=== PATIENT | female | born 1955 | race Caucasian/White ===

== ENCOUNTER → 2019-09-08 11:23 | Outpatient (CLI) | payer MEDICARE, SELFPAY ==
--- NOTE | ~2019-09-08 | XR_ITS ---
XR ankle RT min 3V 09/08/2019 11:41 Indication: Right fibular fracture Procedure: 2 views right ankle Comparison: No prior studies for comparison. Findings: Transverse nondisplaced distal fibular fracture, age indeterminate. Ankle mortise. Talar do me is normal. There are degenerative calcaneal enthesophytes. Mild lateral soft tissue swelling. Impression: 1: Age-indeterminate nondisplaced distal fibular fracture. Reviewed, dictated and finalized at location B. [employer] Impression: 1: Age-indeterminate nondisplaced distal fibular fracture.
== END ==
PROVIDERS: PCP Internal Medicine; Visit Provider Podiatrist Foot & Ankle Surgery
DX: S82.401A Unspecified fracture of shaft of right fibula, initial encounter for closed fracture (principal); X58.XXXA Exposure to other specified factors, initial encounter
CPT/HCPCS: 73610

== ENCOUNTER → 2019-10-01 12:34 | Outpatient (CLI) | payer MEDICARE, SELFPAY ==
--- NOTE | ~2019-10-01 | XR_ITS ---
EXAMINATION: XR ankle RT min 3V DATE: 10/01/2019 12:55 INDICATION: Lateral right ankle fracture TECHNIQUE: Anteroposterior, oblique, mortise, and lateral views of the right ankle were obtained. COMPARISON: 09/08/2019 FINDINGS: There is subtle increased sclerosis along the still nondisplaced transverse fracture line across the lateral malleolus which is located approximately 1 cm caudal to the level of the tibiotalar joint lisha e. Alignment remains normal. No other fractures identified. Joint space at the right ankle, mid and h indfoot are relatively preserved. Moderate-sized Achilles and plantar calcaneal spurs. Prominent soft tissue swelling about the lateral malleolus. Possible small right ankle joint effusion. IMPRESSION: 1. Healing nondisplaced transverse fracture of the distal tip of the lateral malleolus. Reviewed, dictated and finalized at location A. IMPRESSION: 1. Healing nondisplaced transverse fracture of the distal tip of the lateral ma lleolus.
== END ==
PROVIDERS: Visit Provider Podiatrist Foot & Ankle Surgery
DX: S82.61XD Displaced fracture of lateral malleolus of right fibula, subsequent encounter for closed fracture with routine healing (principal); X58.XXXD Exposure to other specified factors, subsequent encounter
CPT/HCPCS: 73610

== ENCOUNTER 2021-12-07 00:27 | Day surgery (SDC) | payer MEDICARE, MEDICAID, SELFPAY ==
[2021-12-04 08:18] VITALS: BMI 34.0
[2021-12-07 09:14] VITALS: BP 133/67; PULSE 80; RESP 19; TEMP 36.8; O2SAT 99
[2021-12-07] MEDS: LACTATED RINGERS 1,000 ML 150 ML IV CONT (09:24)
--- NOTE | 2021-12-07 09:26 | PM.HPGS ---
History of Present Illness History of Present Illness Consent: Risks, benefits, and alternatives have been discussed and questions answered. Patient agrees to proceed with procedure. Chief complaint: epigastric pain Narrative: Cristal Conway is a 66 year old female Who?has been suffering from abdominal pain.? It is present virtually every day.? The pattern is that usually she is feeling fairly good until she eats a meal.? Then she will get a pain in the epigastric area and after a short period of time it will begin to travel down towards the right lower quadrant into the groin.? She has had studies done to investigate this including an EGD about 2 or 3 years ago, colonoscopy a year prior to that as well as CT scans all of which were unremarkable.? ? 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 She thinks she may have lost about 6 lb total. Review of Systems Review of Systems: All systems reviewed & are unremarkable except as noted in HPI and below PMFSH Social History Social History Smoking status: Never smoker Living arrangements: with family Spiritual care concerns: No Meds Home Medications and Allergies Home Medications Medication Instructions Recorded Confirmed Type aspirin 81 mg tablet,delayed 81 mg PO DAILY 10/23/21 12/04/21 History release (Adult Aspirin Regimen) atorvastatin 40 mg tablet 40 mg PO DAILY 10/23/21 12/04/21 History carvedilol 3.125 mg tablet 3.125 mg PO BID 10/23/21 12/04/21 History clopidogrel 75 mg tablet 75 mg PO DAILY 10/23/21 12/04/21 History furosemide 20 mg tablet 20 mg PO DAILY 10/23/21 12/04/21 History lisinopril 40 mg tablet 40 mg PO DAILY 10/23/21 12/04/21 History polyethylene glycol 3350 17 17 g PO .prn PRN Constipation 10/23/21 12/04/21 History gram/dose oral powder (Miralax) spironolactone 25 mg tablet 25 mg PO DAILY 10/23/21 12/04/21 History Allergies Allergy/AdvReac Type Severity Reaction Status Date / Time No Known Allergies Allergy Mild Verified 12/07/21 09:13 Vital Signs Vital Signs - 24 hr 12/07/21 09:14 Temperature 36.8 C Pulse Rate 80 Respiratory Rate 19 Blood Pressure 133/67 Pulse Oximetry 99 Oxygen Delivery Room Air Exam Const: General: alert Orientation/consciousness: patient oriented x3 Resp: Auscultation: clear to auscultation bilaterally Cardio: Rhythm: regular rhythm GI: GI Palp: Yes Soft to palpation and No Tenderness to palpation present (GI) Neuro: General: patient oriented x3 Assessment and Plan Assessment and plan (1) Epigastric pain: Code(s): R10.13 - Epigastric pain Status: Acute Assessment and Plan: EGD with possible biopsy or dilatation or cautery.
--- NOTE | 2021-12-07 10:01 | P.PNAN_ITS ---
Anes - Initial Pre Proc Eval Procedure: Operation Date: 12/07/21 10:30 Proposed Procedures p Esophagogastroduodenoscopy - Edmar Fuller MD Date/Time: 12/07/21 10:01 Surgeon: Edmar Fuller MD Pre Op Diagnosis: epigastric pain Patient Data Age: 66 Gender: F Height: 1.6 m Weight: 88.2 kg Last Vital Signs Temp 98.2 F 12/07/21 09:14 Pulse 80 12/07/21 09:14 Resp 19 12/07/21 09:14 BP 133/67 12/07/21 09:14 Pulse Ox 99 12/07/21 09:14 O2 Del Method Room Air 12/07/21 09:14 Allergies Allergy/AdvReac Type Severity Reaction Status Date / Time No Known Allergies Allergy Mild Verified 12/07/21 09:13 Home Medications Medication Instructions Recorded Confirmed Type aspirin 81 mg tablet,delayed 81 mg PO DAILY 10/23/21 12/04/21 History release (Adult Aspirin Regimen) atorvastatin 40 mg tablet 40 mg PO DAILY 10/23/21 12/04/21 History carvedilol 3.125 mg tablet 3.125 mg PO BID 10/23/21 12/04/21 History clopidogrel 75 mg tablet 75 mg PO DAILY 10/23/21 12/04/21 History furosemide 20 mg tablet 20 mg PO DAILY 10/23/21 12/04/21 History lisinopril 40 mg tablet 40 mg PO DAILY 10/23/21 12/04/21 History polyethylene glycol 3350 17 17 g PO .prn PRN Constipation 10/23/21 12/04/21 His tory gram/dose oral powder (Miralax) spironolactone 25 mg tablet 25 mg PO DAILY 10/23/21 12/04/21 History Patient hx anesthesia problems: none Family hx anesthesia problems: none Results Review: All pre-operative results and documents have been reviewed as part of the pre- operative evaluation. [facility] Social History Social History Smoking status: Never smoker Living arrangements: with family Spiritual care concerns: No Anes - Eval Final PreProcedure Day of Procedure 12/07/21 10:01 Patient weight: obese Heart: regular rate and rhythm Lungs: clear to auscultation Airway: Mallampati scale class II Neurological: alert and oriented Last oral intake: >/= 8 hours ASA classification: III Emergent: no Anesthetic plan: proceed Anesthesia type and monitoring: general GIVS and standard monitoring Results Review: All pre-operative results and documents have been reviewed as part of the pre-o perative evaluation. Informed Consent: The patient's anesthetic plan and its attendant risks and benefits were discussed with the patient/family/POA. Questions were solicited and answers provided to the satisfaction of the patient/family/POA.
[2021-12-07 10:23] VITALS: BP 106/58; PULSE 67; RESP 14; O2SAT 93
[2021-12-07 10:33] VITALS: BP 126/68; PULSE 66; RESP 17; O2SAT 97
[2021-12-07 10:43] VITALS: BP 131/68; PULSE 65; RESP 16; O2SAT 100
== END 2021-12-07 10:53 | disposition home or self-care (01) ==
PROVIDERS: PCP Internal Medicine; Visit Provider Internal Medicine Gastroenterology
PROC: 0DJ08ZZ Inspection of Upper Intestinal Tract, Via Natural or Artificial Opening Endoscopic (ICD-10-PCS; CPT 43235; principal; 2021-12-07 10:30)
DX: R10.13 Epigastric pain (principal); K29.70 Gastritis, unspecified, without bleeding; K21.9 Gastro-esophageal reflux disease without esophagitis; Z79.82 Long term (current) use of aspirin; E66.9 Obesity, unspecified; Z68.34 Body mass index [BMI] 34.0-34.9, adult
CPT/HCPCS: 43239; 87081; 88305; J2704; J7120

== ENCOUNTER 2022-07-30 10:56 | Emergency (ER) | payer MEDICARE, MEDICAID, SELFPAY ==
[2022-07-30 10:59] VITALS: BP 124/63; PULSE 76; RESP 16; TEMP 36.7; O2SAT 99
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
[2022-07-30] MEDS: DEXAMETHASONE 2 MG TABLET 6 MG PO (13:20)
[2022-07-30] MEDS: CYCLOBENZAPRINE HCL 5 MG TABLET PO (13:20)
== END 2022-07-30 13:21 | disposition home or self-care (01) ==
PROVIDERS: Emergency Provider Emergency Medicine; PCP Internal Medicine
DX: S39.012A Strain of muscle, fascia and tendon of lower back, initial encounter (principal); V49.40XA Driver injured in collision with unspecified motor vehicles in traffic accident, initial encounter
CPT/HCPCS: 99283; A9270; J8540

== ENCOUNTER 2022-10-11 11:24 | Emergency (ER) | payer MEDICARE, MEDICAID, SELFPAY ==
--- NOTE | ~2022-10-11 | XR_ITS ---
EXAMINATION: XR finger 3rd LT min 2V INDICATION: Left third finger pain TECHNIQUE: Three views of the left third finger are obtained. COMPARISON: None available FINDINGS: There is soft tissue swelling of the third finger. Bone alignment is normal. There is no fr acture. There is mild osteoarthritis of the distal interphalangeal joint. IMPRESSION: 1. Soft tissue swelling of the third finger without acute osseous abnormality. Reviewed, dictated and finalized at location B.
[2022-10-11 11:32] VITALS: BP 122/60; PULSE 76; RESP 20; TEMP 36.2; O2SAT 100
[2022-10-11 13:25] VITALS: BP 119/75; PULSE 73; RESP 19; O2SAT 99
[2022-10-11] MEDS: ONDANSETRON HCL ODT 4 MG TABLET PO (13:52)
[2022-10-11] MEDS: TETANUS,DIPHTHERIA,AC PERTUSSIS ADULT (0.5 ML) BOOSTRIX IM (13:52)
[2022-10-11] MEDS: HYDROcodone/acetaminophen (*CRX) 5-325 MG TABLET 1 TAB PO (13:54)
[2022-10-11] MEDS: LIDOCAINE HCL 2% LOCAL INJ 20 ML VIAL INFILTRATE (13:55)
--- NOTE | 2022-10-11 13:59 | ED.GENADULT ---
HPI - General Adult General Chief complaint: Unspecified Stated complaint: left middle finger swelling, suspected bite Time Seen by Provider: 10/11/22 12:04 Source: patient, RN notes reviewed and old records reviewed Mode of arrival: ambulatory Limitations: no limitations History of Present Illness HPI narrative: This is a 67 year old right hand dominant female who presents for evaluation swollen left middle finger starting 2 days ago. She reports having pimple on her right finger next to nail. She ruptured the pimple and she developed redness and swelling to finger tip. She denies nausea, vomiting, fever, chills. She has pain with movement of the finger. She is unsure of her last tetanus. SHe denies history of MRSA. Related Data Home Medications Medication Instructions Recorded Confirmed aspirin 81 mg tablet,delayed 81 mg PO DAILY 10/23/21 12/04/21 release (Adult Aspirin Regimen) atorvastatin 40 mg tablet 40 mg PO DAILY 10/23/21 12/04/21 carvedilol 3.125 mg tablet 3.125 mg PO BID 10/23/21 12/04/21 clopidogrel 75 mg tablet 75 mg PO DAILY 10/23/21 12/04/21 furosemide 20 mg tablet 20 mg PO DAILY 10/23/21 12/04/21 lisinopril 40 mg tablet 40 mg PO DAILY 10/23/21 12/04/21 polyethylene glycol 3350 17 17 g PO .prn PRN Constipation 10/23/21 12/04/21 gram/dose oral powder (Miralax) spironolactone 25 tablet 07/30/22 mg-hydrochlorothiazide 25 mg tablet Allergies Allergy/AdvReac Type Severity Reaction Status Date / Time No Known Allergies Allergy Mild Verified 10/11/22 11:39 Review of Systems Constitutional: Constitutional: Denies weakness Cardiovascular: Cardiovascular: Denies syncope, Denies rapid heart rate, Denies irregular heart rhythm, Denies leg edema and Denies dyspnea Respiratory: Respiratory: Denies chest congestion, Denies hemoptysis, Denies excessive phlegm production and Denies dyspnea Gastrointestinal: Gastrointestinal: Denies abdominal pain, Denies hematochezia, Denies diarrhea and Denies vomiting Genitourinary: Genitourinary: Denies hematuria and Denies dysuria Musculoskeletal: Musculoskeletal: Denies joint swelling, Denies loss of height and Denies muscle weakness Neurologic: Denies syncope, Denies focal weakness and Denies weakness COUNT INCLUDES THE [facility] Past Medical History Medical History (Updated 10/11/22 @ 14:58 by Rachel See MD) Hypertension Surgical History Surgical History (Updated 10/11/22 @ 14:02 by Rachel See MD) H/O: hysterectomy Social History Social History Smoking status: Never smoker Living arrangements: with family Spiritual care concerns: No Exam Const: General: cooperative, no acute distress and alert Orientation/consciousness: patient oriented x3 HENMT: Head: normal to inspection Eyes: EOM: EOMs intact bilaterally Resp: Effort & Inspection: normal respiratory effort Cardio: Peripheral pulses: Peripheral pulses 2+ throughout Skin: Other: left 3rd finger with area of redness, fluctuance tenderness radial side nail Neuro: General: patient oriented x3 Extrem: General: full ROM and capillary refill normal Psych: Appearance: grossly normal Affect: normal affect Attitude: cooperative Thought process: Normal thought process present Course Reevaluation(s) Reevaluation #1: PAtient states she feels better after I and D of paronychia. She has some bleeding but controlled with bandage. I discussed bandage change and wound care with patient. She was started on antibiotics given signs of cellulitis. Date: 10/11/22 Time: 15:00 Vital Signs Vital signs: Vital Signs Temperature 97.2 F L 10/11/22 11:32 Pulse Rate 76 10/11/22 11:32 Respiratory Rate 20 10/11/22 11:32 Blood Pressure 122/60 10/11/22 11:32 Pulse Oximetry 100 10/11/22 11:32 Oxygen Delivery Room Air 10/11/22 11:32 Temperature 97.2 F L 10/11/22 11:32 Pulse Rate 78 10/11/22 15:09 Respiratory Rate 16 10/11
[2022-10-11 15:09] VITALS: BP 107/71; PULSE 78; RESP 16; O2SAT 99
== END 2022-10-11 15:10 | disposition home or self-care (01) ==
PROVIDERS: Emergency Provider General Practice; PCP Internal Medicine
DX: L03.012 Cellulitis of left finger (principal); Z23 Encounter for immunization; I10 Essential (primary) hypertension; Z79.82 Long term (current) use of aspirin; Z90.710 Acquired absence of both cervix and uterus
CPT/HCPCS: 10060; 26010; 73140; 90471; 90715; 99283; A9270

== ENCOUNTER 2023-04-27 10:01 | Emergency (ER) | payer MEDICARE, MEDICAID, SELFPAY ==
--- NOTE | ~2023-04-27 | XR_ITS ---
EXAMINATION: XR chest 1V portable 04/27/2023 10:20 INDICATION: Cough PROCEDURE: AP portable chest COMPARISON: No prior studies for comparison. FINDINGS: The lungs are clear. The cardiomediastinal silhouette is within normal limits. There are no pleural effusions. There is no pneumothorax suspected. IMPRESSION: 1: NO ACUTE CARDIOPULMONARY DISEASE. Reviewed, dictated and finalized at location A.
[2023-04-27 10:03] VITALS: BP 150/63; PULSE 58; RESP 16; TEMP 36.2; O2SAT 99
[2023-04-27 10:27] VITALS: O2SAT 97
[2023-04-27 10:31] VITALS: PULSE 54; RESP 16
[2023-04-27] MEDS: ALBUTEROL SULFATE NEB 2.5 MG/3 ML INH INHALATION (10:31)
[2023-04-27] MEDS: IPRATROPIUM BR 0.02% INH SOLN 0.5 MG/2.5 ML VIAL INHALATION (10:31)
--- NOTE | 2023-04-27 10:43 | ED.GENADULT ---
HPI - General Adult General Chief complaint: Upper Respiratory Infection Stated complaint: coughing Time Seen by Provider: 04/27/23 10:10 History of Present Illness HPI narrative: Patient is a 68-year-old female who presents ER with reports of cough. Ongoing for several weeks. Has been on antibiotics without improvement. No fevers or chills or sweats. It is nonproductive and feels deep in her chest. No exertional dyspnea. No history of bronchitis or COPD. She does not have an inhaler. Related Data Home Medications Medication Instructions Recorded Confirmed aspirin 81 mg tablet,delayed 81 mg PO DAILY 10/23/21 12/04/21 release (Adult Aspirin Regimen) atorvastatin 40 mg tablet 40 mg PO DAILY 10/23/21 12/04/21 carvedilol 3.125 mg tablet 3.125 mg PO BID 10/23/21 12/04/21 clopidogrel 75 mg tablet 75 mg PO DAILY 10/23/21 12/04/21 furosemide 20 mg tablet 20 mg PO DAILY 10/23/21 12/04/21 lisinopril 40 mg tablet 40 mg PO DAILY 10/23/21 12/04/21 polyethylene glycol 3350 17 17 g PO .prn PRN Constipation 10/23/21 12/04/21 gram/dose oral powder (Miralax) spironolactone 25 tablet 07/30/22 mg-hydrochlorothiazide 25 mg tablet Allergies Allergy/AdvReac Type Severity Reaction Status Date / Time No Known Allergies Allergy Mild Verified 04/27/23 10:05 Review of Systems Constitutional: Constitutional: Denies chills, Denies fatigue and Denies fever(s) ENT: Denies nasal congestion and Denies sore throat Cardiovascular: Cardiovascular: Denies chest pain, Denies rapid heart rate and Denies radiating jaw, neck or arm pain Respiratory: Respiratory: Reports cough, Denies dyspnea and Denies wheezing [facility] Past Medical History Medical History (Updated 04/27/23 @ 11:21 by David Koch MD) Hypertension Surgical History Surgical History (Updated 10/11/22 @ 14:02 by Rachel See MD) H/O: hysterectomy Social History Social History Smoking status: Never smoker Living arrangements: with family Spiritual care concerns: No Exam Narrative: GENERAL: Well-appearing, well-nourished, and in no acute distress. HEAD: Normocephalic, atraumatic. CHEST: Clear to auscultation. No respiratory distress. HEART: Regular rate and rhythm. Normal peripheral pulses. ABDOMEN: Soft, nontender, nondistended. SKIN: Warm, dry, no rash. NEURO: Alert and oriented x3. PSYCH: Normal mood and affect. Course Course Emergency Course: Coughing improved with nebulizer treatment. Discharge home with steroids and albuterol. Vital Signs Vital signs: Vital Signs Temperature 97.2 F L 04/27/23 10:03 Pulse Rate 58 L 04/27/23 10:03 Respiratory Rate 16 04/27/23 10:03 Blood Pressure 150/63 H 04/27/23 10:03 Pulse Oximetry 99 04/27/23 10:03 Temperature 97.2 F L 04/27/23 10:03 Pulse Rate 66 04/27/23 11:42 Respiratory Rate 18 04/27/23 11:42 Blood Pressure 130/72 04/27/23 11:42 Pulse Oximetry 100 04/27/23 11:42 Oxygen Delivery Room Air 04/27/23 10:27 Medical Decision Making Vital Signs Vital Signs: Vital Signs Temperature 97.2 F L 04/27/23 10:03 Pulse Rate 58 L 04/27/23 10:03 Respiratory Rate 16 04/27/23 10:03 Blood Pressure 150/63 H 04/27/23 10:03 Pulse Oximetry 99 04/27/23 10:03 Temperature 97.2 F L 04/27/23 10:03 Pulse Rate 66 04/27/23 11:42 Respiratory Rate 18 04/27/23 11:42 Blood Pressure 130/72 04/27/23 11:42 Pulse Oximetry 100 04/27/23 11:42 Oxygen Delivery Room Air 04/27/23 10:27 Discharge Plan Discharge Clinical Impression: Bronchitis Patient Disposition: Home, Self-Care Condition: Stable Instructions: Acute Bronchitis (ED) Additional Instructions: Return the ER if you have fever 100.4 ?F, you cannot keep down food or water, you lose consciousness, you have additional concerns. Prescriptions: New prednisone 50 mg tablet 50 mg PO DAILY Qty: 7 0RF
[2023-04-27 10:44] VITALS: PULSE 69; RESP 16
[2023-04-27 11:42] VITALS: BP 130/72; PULSE 66; RESP 18; O2SAT 100
== END 2023-04-27 11:43 | disposition home or self-care (01) ==
PROVIDERS: Emergency Provider Emergency Medicine; PCP Internal Medicine
DX: J40 Bronchitis, not specified as acute or chronic (principal); I10 Essential (primary) hypertension
CPT/HCPCS: 71045; 94640; 99283

== ENCOUNTER 2023-10-04 13:40 | Emergency (ER) | payer MEDICARE, MEDICAID, SELFPAY ==
--- NOTE | ~2023-10-04 | XR_ITS ---
EXAMINATION: XR shoulder LT min 2V DATE: 10/04/2023 14:19 INDICATION: Left shoulder pain. Fall. TECHNIQUE: 4 views of left shoulder were obtained. COMPARISON: None. FINDINGS: Bone alignment is normal. No fracture. There is mild osteoarthritis of glenohumeral joint a nd severe osteoarthritis of acromioclavicular joint. IMPRESSION: 1. Polyarticular osteoarthritis. Reviewed, dictated and finalized at location E.
[2023-10-04 13:41] VITALS: BP 131/70; PULSE 94; RESP 16; TEMP 36.4; O2SAT 100
--- NOTE | 2023-10-04 15:17 | ED.FALL ---
HPI - Fall General Chief Complaint: Fall Stated Complaint: neck pain Time Seen by Provider: 10/04/23 13:46 History of Present Illness HPI Narrative: Patient fell several days ago, and caught herself with her left arm, and since then has had pain to her left shoulder. Worse with certain movements. Sometimes comes up her left neck. Also has some pain to her left knee but has not been as bad as her left shoulder. No focal numbness or weakness. Related Data Home Medications Medication Instructions Recorded Confirmed aspirin 81 mg tablet,delayed 81 mg PO DAILY 10/23/21 12/04/21 release (Adult Aspirin Regimen) atorvastatin 40 mg tablet 40 mg PO DAILY 10/23/21 12/04/21 carvedilol 3.125 mg tablet 3.125 mg PO BID 10/23/21 12/04/21 clopidogrel 75 mg tablet 75 mg PO DAILY 10/23/21 12/04/21 furosemide 20 mg tablet 20 mg PO DAILY 10/23/21 12/04/21 lisinopril 40 mg tablet 40 mg PO DAILY 10/23/21 12/04/21 polyethylene glycol 3350 17 17 g PO .prn PRN Constipation 10/23/21 12/04/21 gram/dose oral powder (Miralax) spironolactone 25 tablet 07/30/22 mg-hydrochlorothiazide 25 mg tablet Allergies Allergy/AdvReac Type Severity Reaction Status Date / Time No Known Allergies Allergy Mild Verified 10/04/23 13:44 Review of Systems Review of Systems: CONST: No fever. HEENT: No sore throat C/V: No chest pain RESP: No cough GI: no abdominal pain : No dysuria. M/S: left shoulder pain, left knee pain SKIN: No rash. NEURO: [No headache or focal numbness or weakness] PSYCH: [No depression] [facility] Past Medical History Medical History (Updated 10/04/23 @ 14:47 by China Maynard MD) Hypertension Surgical History Surgical History (Updated 10/11/22 @ 14:02 by Rachel See MD) H/O: hysterectomy Social History Social History Smoking status: Never smoker Living arrangements: with family Spiritual care concerns: No Exam Narrative: EXAMINATION OF ORGAN SYSTEMS/BODY AREAS: Constitutional: Vital signs per nursing GENERAL:[No acute distress, non-toxic appearing.] HEAD: Normal with no signs of head trauma. EYES: EOMI, conjunctiva normal ENT: Hearing grossly intact LUNGS: Nonlabored breathing. HEART: [Regular rate and rhythm]. Normal radial pulse. ABD: [Soft], [nontender to palpation] EXT: Normal range of motion; some tenderness to the left shoulder, +Castro SKIN: [No rashes or lesions.] NEURO: [Alert and oriented x 3. No gross focal sensory or strength deficits.] PSYCH: Normal affect Course Vital Signs Vital signs: Vital Signs Temperature 97.5 F L 10/04/23 13:41 Pulse Rate 94 10/04/23 13:41 Respiratory Rate 16 10/04/23 13:41 Blood Pressure 131/70 10/04/23 13:41 Pulse Oximetry 100 10/04/23 13:41 Temperature 97.5 F L 10/04/23 13:41 Pulse Rate 94 10/04/23 13:41 Respiratory Rate 16 10/04/23 13:41 Blood Pressure 131/70 10/04/23 13:41 Pulse Oximetry 100 10/04/23 13:41 MDM - Fall MDM Narrative Medical decision making narrative: 68-year-old female presenting with left shoulder pain after recent injury, vital stable, neurovascularly intact, no obvious deformity. Shoulder x-ray viewed by myself, no obvious fracture, discussed with patient, I will have her follow-up with Orthopedics, stable for discharge at this time. Discharge Plan Discharge Clinical Impression: Sprain of left shoulder Patient Disposition: Home, Self-Care Condition: Stable Instructions: Antibiotic Form, Shoulder Sprain (ED) Additional Instructions: Please follow-up with the orthopedic surgeon, you can always return to the emergency room for any further issues. Prescriptions: New methocarbamol 750 mg tablet 750 mg PO TID PRN (Reason: muscle spasm) Qty: 30 0RF No Action atorvastatin 40 mg tablet 40 mg PO DAILY carvedilol 3.125 mg tablet 3.125 mg PO BID Rx Instructions: dean
== END 2023-10-04 14:57 | disposition home or self-care (01) ==
PROVIDERS: Emergency Provider Emergency Medicine; PCP Internal Medicine
DX: S43.402A Unspecified sprain of left shoulder joint, initial encounter (principal); W19.XXXA Unspecified fall, initial encounter; I10 Essential (primary) hypertension; Z79.82 Long term (current) use of aspirin
CPT/HCPCS: 73030; 99283

== ENCOUNTER 2023-10-20 10:06 | Emergency (ER) | payer MEDICARE, MEDICAID, SELFPAY ==
[2023-10-20 10:10] VITALS: BP 118/62; PULSE 79; RESP 18; TEMP 36.7; O2SAT 99
--- NOTE | 2023-10-20 12:43 | ED.UPPEXIN ---
HPI - Extremity Injury (Upper) General Chief Complaint: Extremity Injury, Upper Stated Complaint: left shoulder pain Time Seen by Provider: 10/20/23 12:18 History of Present Illness HPI narrative: Pt fell and landed on left shoulder and side two weeks ago. Pt said she was seen here and had x rays which were negative. Pt says she continues to have pain in her left shoulder and can't lift her shoulder above 15 degrees. Pt has appointment with PCP Friday and ortho next week. Pt just wants something for pain at night until her PCP sees her and can order MRI. Related Data Home Medications Medication Instructions Recorded Confirmed aspirin 81 mg tablet,delayed 81 mg PO DAILY 10/23/21 12/04/21 release (Adult Aspirin Regimen) atorvastatin 40 mg tablet 40 mg PO DAILY 10/23/21 12/04/21 carvedilol 3.125 mg tablet 3.125 mg PO BID 10/23/21 12/04/21 clopidogrel 75 mg tablet 75 mg PO DAILY 10/23/21 12/04/21 furosemide 20 mg tablet 20 mg PO DAILY 10/23/21 12/04/21 lisinopril 40 mg tablet 40 mg PO DAILY 10/23/21 12/04/21 polyethylene glycol 3350 17 17 g PO .prn PRN Constipation 10/23/21 12/04/21 gram/dose oral powder (Miralax) spironolactone 25 tablet 07/30/22 mg-hydrochlorothiazide 25 mg tablet Allergies Allergy/AdvReac Type Severity Reaction Status Date / Time No Known Allergies Allergy Mild Verified 10/20/23 10:07 Review of Systems Review of Systems: All systems reviewed & are unremarkable except as noted in HPI and below PMFSH Past Medical History Medical History (Updated 10/20/23 @ 12:51 by Nadeen Coleman III, DO) Hypertension Surgical History Surgical History (Updated 10/11/22 @ 14:02 by Rachel See MD) H/O: hysterectomy Social History Social History Smoking status: Never smoker Living arrangements: with family Spiritual care concerns: No Exam Const: General: healthy appearing Nutritional Appearance: well nourished Orientation/consciousness: patient oriented x3 Limitations: no limitations HENMT: Head: normal to inspection Eyes: Pupils: Equal, round and reactive pupils present Neck: Neck: normal visual inspection, no lymphadenopathy and no meningeal signs Other: no midline pain Resp: Effort & Inspection: normal respiratory effort Cardio: Rate: regular rate Rhythm: regular rhythm Neuro: General: patient oriented x3 and moves all extremities Speech: normal speech Extrem: Other: unable to abduct left shoulder beyond a few degrees. tender proximal humerus. Psych: Mental Status: mental status grossly normal Affect: normal affect Attitude: cooperative Course Vital Signs Vital signs: Vital Signs Temperature 98.0 F 10/20/23 10:10 Pulse Rate 79 10/20/23 10:10 Respiratory Rate 18 10/20/23 10:10 Blood Pressure 118/62 10/20/23 10:10 Pulse Oximetry 99 10/20/23 10:10 Oxygen Delivery Room Air 10/20/23 10:10 Temperature 98.4 F 10/20/23 12:57 Pulse Rate 72 10/20/23 12:57 Respiratory Rate 16 10/20/23 12:57 Blood Pressure 123/83 10/20/23 12:57 Pulse Oximetry 98 10/20/23 12:57 Oxygen Delivery Room Air 10/20/23 10:10 MDM - Extremity Injury (Upper) MDM Narrative Medical decision making narrative: P could definitely have rotator cuff tear or other soft tissue injury with negative x ray 10/03. Pt does not want CT and will wait on MRI that her PCP can order after she is seen Friday. eva prescribe a few norco for her at night. Discharge Plan Discharge Clinical Impression: Left shoulder pain Patient Disposition: Home, Self-Care Condition: Stable Instructions: Antibiotic Form, Rotator Cuff Injury (ED) Prescriptions: New hydrocodone-acetaminophen 5-325 mg tablet 1 tablet PO Q6H PRN (Reason: pain) Qty: 14 0RF No Action atorvastatin 40 mg tablet 40 mg PO DAILY carvedilol 3.125 mg tablet 3.125 mg PO BID Rx Instructions: mu
[2023-10-20 12:57] VITALS: BP 123/83; PULSE 72; RESP 16; TEMP 36.9; O2SAT 98
== END 2023-10-20 12:58 | disposition home or self-care (01) ==
PROVIDERS: Emergency Provider Emergency Medicine; PCP Internal Medicine
DX: M25.512 Pain in left shoulder (principal); I10 Essential (primary) hypertension; Z90.710 Acquired absence of both cervix and uterus; Z79.82 Long term (current) use of aspirin
CPT/HCPCS: 99283

== ENCOUNTER 2023-11-06 07:55 | Outpatient (CLI) | payer MEDICARE, MEDICAID, SELFPAY ==
--- NOTE | ~2023-11-06 | MR_ITS ---
EXAMINATION: MR shoulder LT wo con DATE: 11/06/2023 08:42 INDICATION: Complete left rotator cuff tear/rupture TECHNIQUE: Magnetic resonance imaging (MRI) of the left shoulder was performed without intravenous co ntrast. Sequences included axial PD-weighted FS FSE, coronal oblique PD-weighted FS FSE, coronal obli que T2-weighted FS FSE, sagittal PD-weighted FS FSE, and sagittal T1-weighted SE. COMPARISON: None. FINDINGS: Coracoacromial arch: The acromion undersurface is curved in morphology (type II). The coracoacromial ligament is normal. S evere acromioclavicular osteoarthritis with small inferiorly directed osteophytes. Rotator cuff: Moderate supraspinatus and mild infraspinatus tendinopathy without tear. The teres minor tendon is no rmal. Mild subscapularis tendinopathy without tear. Normal rotator cuff muscle bulk and signal. Biceps tendon, glenoid labrum and glenohumeral cartilage: Mild tendinopathy of the intra-articular portion of the long head biceps tendon without tear. There i s a [place] complex with absent anterosuperior labrum and thickened cordlike middle glenohumeral ligam ent. There is amorphous increased signal at the proximal aspect of the middle glenohumeral and superi or glenohumeral ligaments near the confluence with the biceps labral complex consistent with at least partial tear. There appears be additional at least partial tear along the humeral side of the anteri or inferior glenohumeral ligament. The posterior inferior labrum has been partially replaced with sma ll marginal osteophyte. Glenoid labrum appears otherwise normal. Glenohumeral cartilage appears relat ively preserved. Fluid: Small glenohumeral joint effusion with proportional extension of a small amount fluid along the long head biceps tendon sheath. No loose osteochondral bodies. No abnormal fluid in the subacromial/subdel toid bursa to suggest bursitis. Bones/other: There is mild posterior subluxation of the humeral head with respect to the glenoid. No fracture or p athologic marrow replacing process. IMPRESSION: 1. At least partial tears of the superior, middle and anterior inferior glenohumeral ligaments with m ild posterior subluxation of the humeral head with respect to the glenoid. 2. Moderate supraspinatus and mild subscapularis and infraspinatus tendinopathy without tear. 3. Mild glenohumeral osteoarthritis with relatively preserved cartilage but small marginal osteophyte s partially replacing the posterior inferior glenoid labrum. 4. Severe acromioclavicular osteoarthritis. Reviewed, dictated and finalized at location A. IMPRESSION: 1. At least partial tears of the superior, middle and anterior inferior glenohu meral ligaments with mild posterior subluxation of the humeral head with respec t to the glenoid. 2. Moderate supraspinatus and mild subscapularis and infraspinatus tendinopathy without tear. 3. Mild glenohumeral osteoarthritis with relatively preserved cartilage but sma ll marginal osteophytes partially replacing the posterior inferior glenoid labr um. 4. Severe acromioclavicular osteoarthritis.
== END 2023-11-06 07:56 ==
LOC: MICIMG 07:56
PROVIDERS: PCP Internal Medicine; Visit Provider Orthopaedic Surgery
DX: M19.012 Primary osteoarthritis, left shoulder (principal); M75.122 Complete rotator cuff tear or rupture of left shoulder, not specified as traumatic
CPT/HCPCS: 73221

== ENCOUNTER 2023-11-08 12:53 | Emergency (ER) | payer MEDICARE, MEDICAID, SELFPAY ==
--- NOTE | ~2023-11-08 | XR_ITS ---
EXAMINATION: XR knee LT min 4V DATE: 11/08/2023 13:15 INDICATION: With left knee pain post twisting injury TECHNIQUE: Anteroposterior, 2 oblique and crosstable lateral views of the left knee were obtained COMPARISON: None. FINDINGS: Alignment is normal. No fracture. Joint spaces appear relatively preserved on nonweightbearing imagi ng. Small left knee joint effusion without layering lipohemarthrosis.. Small amount of enthesopathic ossification at the patellar insertion of the distal patellar tendon. Soft tissues are otherwise unre markable. IMPRESSION: 1. Small left knee joint effusion. No acute osseous abnormality. Reviewed, dictated and finalized at location A.
[2023-11-08 12:58] VITALS: BP 130/66; PULSE 60; RESP 17; TEMP 36.2; O2SAT 100
--- NOTE | 2023-11-08 13:29 | ED.LOWEXIN ---
HPI - Extremity Injury (Lower) General Chief Complaint: Extremity Injury, Lower Stated Complaint: left knee pain Time Seen by Provider: 11/08/23 13:03 Source: patient Mode of arrival: wheelchair Limitations: no limitations History of Present Illness HPI Narrative: This is a 68-year-old female that presents to the emergency department for left knee pain. Reports she twisted the knee yesterday and felt a pop. She has had pain and swelling since. She has not been able to bear weight on the extremity without pain. Denies fevers, erythema, or numbness. Related Data Home Medications Medication Instructions Recorded Confirmed aspirin 81 mg tablet,delayed 81 mg PO DAILY 10/23/21 10/29/23 release (Adult Aspirin Regimen) atorvastatin 40 mg tablet 40 mg PO DAILY 10/23/21 10/29/23 carvedilol 3.125 mg tablet 3.125 mg PO BID 10/23/21 10/29/23 clopidogrel 75 mg tablet 75 mg PO DAILY 10/23/21 10/29/23 furosemide 20 mg tablet 20 mg PO DAILY 10/23/21 10/29/23 lisinopril 40 mg tablet 40 mg PO DAILY 10/23/21 10/29/23 polyethylene glycol 3350 17 17 g PO .prn PRN Constipation 10/23/21 10/29/23 gram/dose oral powder (Miralax) spironolactone 25 tablet 07/30/22 10/29/23 mg-hydrochlorothiazide 25 mg tablet Allergies Allergy/AdvReac Type Severity Reaction Status Date / Time No Known Allergies Allergy Mild Verified 11/08/23 12:58 Review of Systems Review of Systems: CONSTITUTIONAL: Denies fever SKIN: Denies rash MUSCULOSKELETAL: Reports joint pain, and myalgia. 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 HEAD: Normocephalic, atraumatic. EYES: EOMI. EXTREMITIES: Normal range of motion. No edema or obvious deformity. Normal DP pulse. Normal sensation SKIN: Warm, dry, no rash. NEURO: No focal deficits. Alert and oriented x3. PSYCH: Normal mood and affect Course Course Emergency Course: Patient updated on her workup and agrees with plan of care Vital Signs Vital signs: Vital Signs Temperature 97.1 F L 11/08/23 12:58 Pulse Rate 60 11/08/23 12:58 Respiratory Rate 17 11/08/23 12:58 Blood Pressure 130/66 11/08/23 12:58 Pulse Oximetry 100 11/08/23 12:58 Temperature 97.1 F L 11/08/23 12:58 Pulse Rate 60 11/08/23 12:58 Respiratory Rate 17 11/08/23 12:58 Blood Pressure 130/66 11/08/23 12:58 Pulse Oximetry 100 11/08/23 12:58 MDM - Extremity Injury (Lower) MDM Narrative Medical decision making narrative: Patient presents to the emergency department for left knee pain after an injury sustained yesterday. She is neurovascularly intact. Left knee x-ray shows a small joint effusion, no osseous abnormalities. Patient placed in a knee immobilizer. She has crutches. Instructed to follow up with her orthopedics doctor. She was given warnings to return to the ER Differential Diagnosis Differential diagnosis: Likely acute internal derangement of knee Imaging Data Radiologist's
== END 2023-11-08 14:00 | disposition home or self-care (01) ==
PROVIDERS: Emergency Provider Physician Assistant; PCP Internal Medicine
DX: M23.92 Unspecified internal derangement of left knee (principal); S89.92XA Unspecified injury of left lower leg, initial encounter; I10 Essential (primary) hypertension; Z90.710 Acquired absence of both cervix and uterus; Z79.82 Long term (current) use of aspirin; X50.9XXA Other and unspecified overexertion or strenuous movements or postures, initial encounter
CPT/HCPCS: 73564; 99283

== ENCOUNTER 2024-03-17 17:03 | Emergency (ER) | payer MEDICARE, MEDICAID, SELFPAY ==
--- NOTE | ~2024-03-17 | XR_ITS ---
XR foot RT min 3V Ordering provider: Mae Mendes History: . right great toe pain, injury . Comparison: None. FINDINGS: BONES: No acute fracture or dislocation. Calcaneus spur. Ossification of the insertion of the tendo Achilles JOINT SPACES: Narrowing of the proximal and distal interphalangeal joints. Osteoarthritic changes of the first metatarsophalangeal joint. No tarsal coalition. SOFT TISSUES: Normal. IMPRESSION: No definite acute osseous abnormality of the right foot. Reviewed, dictated and finalized at location A.
[2024-03-17 17:07] VITALS: BP 145/53; PULSE 89; RESP 17; TEMP 37.1; O2SAT 99
--- NOTE | 2024-03-17 17:58 | ED.LOWEXIN ---
HPI - Extremity Injury (Lower) General Chief Complaint: Extremity Injury, Lower <Mae Mendes PA-C - Last Filed: 03/18/24 09:08> Stated Complaint: R big toe injury <Mae Mendes PA-C - Last Filed: 03/18/24 09:08> Time Seen by Provider: 03/17/24 17:58 <Mae Mendes PA-C - Last Filed: 03/18/24 09:08> Focused HPI: This is a 68 year old female that presents to the ER for right great toe pain. Ongoing over the last 2 days. Reports she believes a can fell on it when she was in her pantry. Denies decreased ROM or numbness. GENERAL: Well-appearing, well-nourished, and in no acute distress. HEAD: Normocephalic, atraumatic. CHEST: Clear to auscultation. ?No respiratory distress. HEART: Regular rate and rhythm.? NEURO: ?Alert and oriented x3. Patient screened in triage and initial orders placed.? ?Additional care and disposition to be based upon?diagnostic testing and treatment. <Mae Mendes PA-C - Last Filed: 03/18/24 09:08> History of Present Illness HPI Narrative: 68-year-old female presenting with toe pain. States that she was cleaning her pantry and can fell on it. It has been hurting since then. No numbness. Still able to walk on it. No further complaints or injuries. <Vandana Paulino MD - Last Filed: 03/17/24 20:36> Related Data Home Medications: Home Medications Medication Instructions Recorded Confirmed aspirin 81 mg tablet,delayed 81 mg PO DAILY 10/23/21 01/06/24 release (Adult Aspirin Regimen) atorvastatin 40 mg tablet 40 mg PO DAILY 10/23/21 01/06/24 carvedilol 3.125 mg tablet 3.125 mg PO BID 10/23/21 01/06/24 clopidogrel 75 mg tablet 75 mg PO DAILY 10/23/21 01/06/24 furosemide 20 mg tablet 20 mg PO DAILY 10/23/21 01/06/24 lisinopril 40 mg tablet 40 mg PO DAILY 10/23/21 01/06/24 polyethylene glycol 3350 17 17 g PO .prn PRN Constipation 10/23/21 01/06/24 gram/dose oral powder (Miralax) spironolactone 25 tablet 07/30/22 01/06/24 mg-hydrochlorothiazide 25 mg tablet <Mae Mendes PA-C - Last Filed: 03/18/24 09:08> Allergies/Adverse Reactions: Allergies Allergy/AdvReac Type Severity Reaction Status Date / Time No Known Allergies Allergy Mild Verified 01/06/24 09:06 <Mae Mendes PA-C - Last Filed: 03/18/24 09:08> Review of Systems Review of Systems: All systems reviewed & are unremarkable except as noted in HPI and below <Vandana Paulino MD - Last Filed: 03/17/24 20:36> [facility] Past Medical History Medical History: Medical History Arthritis of left knee Complete rotator cuff tear of left shoulder Hypertension <Mae Mendes PA-C - Last Filed: 03/18/24 09:08> Surgical History Surgical History: Surgical History H/O: hysterectomy History of bladder suspension procedure <Mae Mendes PA-C - Last Filed: 03/18/24 09:08> Family History Family History: Family History Unknown Hypertension Heart disease Lung cancer Arthritis <Mae Mendes PA-C - Last Filed: 03/18/24 09:08> Social History Social History: Social History Social History: caffeine use Smoking status: Never smoker Alcohol intake: never Substance use: never Living arrangements: with family Occupation/Education: occupation 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 EYES: PERRLA and EOMI. ENT: Grossly unremarkable NECK: Supple. CHEST: No respiratory distress. HEART: Regular rate and rhythm EXTREMITIES: Normal range of jyoti
[2024-03-17] MEDS: ACETAMINOPHEN 500 MG TABLET 1000 MG PO (21:36)
[2024-03-17 21:42] VITALS: BP 132/80; PULSE 80; RESP 16; O2SAT 98
== END 2024-03-17 21:45 | disposition home or self-care (01) ==
PROVIDERS: Emergency Provider Emergency Medicine; PCP Internal Medicine
DX: S99.921A Unspecified injury of right foot, initial encounter (principal); W19.XXXA Unspecified fall, initial encounter; I10 Essential (primary) hypertension; Z79.82 Long term (current) use of aspirin
CPT/HCPCS: 73630; 99283; A9270

== ENCOUNTER 2024-03-22 12:07 | Emergency (ER) | payer MEDICARE, MEDICAID, SELFPAY ==
--- NOTE | ~2024-03-22 | US_ITS ---
RIGHT LOWER EXTREMITY VENOUS ULTRASOUND Ordering provider: Elma Madera APRN History: . swollen RLE . Comparison: None. FINDINGS: --COMMON FEMORAL: Patent and free of thrombus. Normal compressibility, phasic flow and augmentation. --PROXIMAL SUPERFICIAL FEMORAL: Patent and free of thrombus. Normal compressibility, phasic flow and augmentation. --DISTAL SUPERFICIAL FEMORAL: Patent and free of thrombus. Normal compressibility, phasic flow and au gmentation. --POPLITEAL: Patent and free of thrombus. Normal compressibility, phasic flow and augmentation. --POSTERIOR TIBIAL: Patent and free of thrombus. Normal compressibility, phasic flow and augmentation . IMPRESSION: Negative right lower extremity venous US. No deep vein thrombosis. Reviewed, dictated and finalized at location A.
--- NOTE | ~2024-03-22 | XR_ITS ---
EXAM: XR foot RT min 3V DATE: 03/22/2024 15:34 HISTORY: swelling WORSE SINCE 03/17 . COMPARISON: 03/17/2024. FINDINGS: Normal mineralization. No fracture or dislocation. No lytic or blastic lesion. Moderate de generative changes at the first MTP joint and multiple midfoot joints. Achilles and plantar enthesopa thy. No erosion or periosteal change. Soft tissues within decreased limits. IMPRESSION: No acute osseous finding in the right foot. Reviewed, dictated and finalized at location K.
[2024-03-22 12:09] VITALS: BP 100/45; PULSE 90; RESP 16; TEMP 36.5; O2SAT 99
--- NOTE | 2024-03-22 12:39 | ED.EXTPRO ---
HPI - Extremity Problem General Chief complaint: Extremity Problem,Nontraumatic <Elma Madera APRN - Last Filed: 03/22/24 13:51> Stated complaint: swollen foot <Elma Madera APRN - Last Filed: 03/22/24 13:51> Time Seen by Provider: 03/22/24 12:45 <Elma Madera APRN - Last Filed: 03/22/24 13:51> Focused HPI: Pt is a 68-year-old female who presents to the ER following a RLE injury that took place 1 1/2 weeks ago. She reports my toe hit the pantry, then when I open the door a can fell out and landed on my toe. Pt reports she came in and had her foot x-rayed on the or . She reports her x-ray was negative. Pt reports her pain has not improved and rates it at an 8-9/10. She having trouble standing up because it's painful. Pt has a history of cardiac disease, cardiac surgery, HTN, hyperlipidemia, and heart attack. Pt took Tylenol Arthritis at 1130 this morning. She has no complaints of chest pain, shortness of breath, or weakness/tingling on one-side of her body. Pt would like to hold off on re-xraying her foot until blood work and ultrasound come back. GENERAL: Well-appearing, well-nourished, and in no acute distress. HEAD: Normocephalic, atraumatic. CHEST: Clear to auscultation. ?No respiratory distress. HEART: Regular rate and rhythm.? NEURO: ?Alert and oriented x3. Patient screened in triage and initial orders placed.? ?Additional care and disposition to be based upon?diagnostic testing and treatment. <Elma Madera APRN - Last Filed: 03/22/24 13:51> Source: patient <Elma Madera APRN - Last Filed: 03/22/24 13:51> Mode of arrival: ambulatory <Elma Madera APRN - Last Filed: 03/22/24 13:51> Limitations: no limitations <Elma Madera APRN - Last Filed: 03/22/24 13:51> History of Present Illness HPI Narrative: 68-year-old female present to the emergency department for evaluation for foot pain. <Harlan Hamm MD - Last Filed: 03/22/24 19:22> Related Data Home medications: Home Medications Medication Instructions Recorded Confirmed aspirin 81 mg tablet,delayed 81 mg PO DAILY 10/23/21 01/06/24 release (Adult Aspirin Regimen) atorvastatin 40 mg tablet 40 mg PO DAILY 10/23/21 01/06/24 carvedilol 3.125 mg tablet 3.125 mg PO BID 10/23/21 01/06/24 clopidogrel 75 mg tablet 75 mg PO DAILY 10/23/21 01/06/24 furosemide 20 mg tablet 20 mg PO DAILY 10/23/21 01/06/24 lisinopril 40 mg tablet 40 mg PO DAILY 10/23/21 01/06/24 polyethylene glycol 3350 17 17 g PO .prn PRN Constipation 10/23/21 01/06/24 gram/dose oral powder (Miralax) spironolactone 25 tablet 07/30/22 01/06/24 mg-hydrochlorothiazide 25 mg tablet <Elma Madera APRN - Last Filed: 03/22/24 13:51> Allergies/Adverse reactions: Allergies Allergy/AdvReac Type Severity Reaction Status Date / Time No Known Allergies Allergy Mild Verified 03/22/24 14:06 <Elma Madera APRN - Last Filed: 03/22/24 13:51> [facility] Past Medical History Medical History: Medical History Arthritis of left knee Complete rotator cuff tear of left shoulder Hypertension <Elma Madera APRN - Last Filed: 03/22/24 13:51> Surgical History Surgical History: Surgical History H/O: hysterectomy History of bladder suspension procedure <Elma Madera APRN - Last Filed: 03/22/24 13:51> Family History Family History: Family History Unknown Hypertension Heart disease Lung cancer Arthritis <Elma Madera APRN - Last Filed: 03/22/24 13:51> Social History Social History: Social History Social History: caffeine use Smoking status: Never smoker Alcohol intake: never Substance use: never Living ar
[2024-03-22 13:14] LABS: Basophils Percent Auto 0.3 % (0.2-1.2); Eosinophils Absolute Auto 0.1 K/mm3 (0-0.3); Hemoglobin 11.9 g/dL (12.0-15.0); Immature Granulocyte Absolute 0.05 K/mm3 (0.00-0.031); Immature Granulocyte Percent A 0.5 % (0-0.5); Lymphocytes Absolute Auto 1.73 K/mm3 (0.9-3.2); Lymphocytes Percent Auto 17.8 % (18.3-44.2); Mean Corpuscular HGB Conc 32.2 g/dl (32-36); Mean Corpuscular Hemoglobin 30.3 pg (26-34); Mean Corpuscular Volume 94.1 fl (80-100); Mean Platelet Volume 10.4 fl (7.4-10.4); Monocytes Absolute Auto 0.6 K/mm3 (0.1-0.6); Monocytes Percent Auto 5.9 % (2.6-8.5); Neutrophils Absolute Auto 7.2 K/mm3 (1.3-6.7); Neutrophils Percent Auto 74.5 % (45.5-73.1); Platelet Count Result 262 k/mm3 (150-375); Red Blood Count 3.93 M/mm3 (4.2-5.4); Red Cell Distribution Width 13.3 % (11.5-14.5); White Blood Count 9.7 K/mm3 (4.5-10.0)
[2024-03-22 13:26] LABS: Anion Gap 8 mmol/L (4-12); Blood Urea Nitrogen 43 mg/dL (7-17); Calcium 9.4 mg/dL (8.4-10.2); Carbon Dioxide 20 mmol/L (22-30); Chloride 106 mmol/L (98-107); Estimated CRCL calculation 30 ml/min; Estimated Glomerular Filt Rate 30; Glucose 163 mg/dL (65-110); Potassium 4.1 mmol/L (3.4-5.0); Sodium 134 mmol/L (137-145); Uric Acid 10.2 mg/dL (2.5-7.5)
[2024-03-22 16:09] VITALS: BP 102/58; PULSE 63; RESP 16; O2SAT 97
== END 2024-03-22 16:10 | disposition home or self-care (01) ==
PROVIDERS: Registered Nurse; Emergency Provider Emergency Medicine; PCP Internal Medicine
DX: R22.41 Localized swelling, mass and lump, right lower limb (principal); I10 Essential (primary) hypertension; I25.2 Old myocardial infarction; E78.5 Hyperlipidemia, unspecified; M17.11 Unilateral primary osteoarthritis, right knee; Z90.710 Acquired absence of both cervix and uterus
CPT/HCPCS: 36415; 73630; 80048; 84550; 85025; 93971; 99284

== ENCOUNTER 2025-01-31 14:55 | Outpatient (CLI) | payer MEDICARE, MEDICAID, SELFPAY ==
--- NOTE | ~2025-01-31 | DEXA_ITS ---
Bone Density Report Name: OVI MA V Age: 69 Sex: Female Ethnicity: White Date of : 1955 Indication: postmenopausal; screening for osteoporosis; height loss; prior fracture; Referring Provider: SONY, ROBERT Stratton Study: Bone densitometry was performed. Exam Date: January 31, 2025 Accession number: [id number] Bone Density: Region BMD T-score Z-score Classification AP Spine(L1-L4) 0.829 -2.0 0.2 Osteopenia Femoral Neck (Left) 0.640 -1.9 0.0 Osteopenia Total Hip (Left) 0.927 -0.1 1.4 Normal Femoral Neck (Right) 0.589 -2.3 -0.5 Osteopenia Total Hip (Right) 0.834 -0.9 0.7 Normal Total Hip Mean 0.880 -0.5 1.1 Normal World Health Organization criteria for BMD impression classify patients as: Normal (T-score at or above -1.0), Osteopenia (T-score between -1.0 and -2.5), or Osteoporosis (T-score at or below -2.5). 10-year Fracture Risk(1): Major Osteoporotic Fracture 19% Hip Fracture 3.9% Reported Risk Factors: [place] (), Neck BMD=0.589, BMI=37.1, previous fracture (1) FRAX(R) Version 3.08. Fracture probability calculated for an untreated patient. Fracture probability may be lower if the patient has received treatment. Clinical Information Provided by Patient: Has had a low trauma fracture Has used the following medications: Vitamin D Patient maximum height was 64 Menopause Age: 43 No regular weight bearing exercise Drinks caffeinated beverages Onset of menses at age 12 Number of children 7 Impression: The patient has low bone mass, based on the Right Femoral Neck T-score. The patient has an estimated ten-year risk of hip fracture of 3.9% and an estimated ten-year risk of major fracture of 19%, based on the WHO FRAX algorithm. The patient has risk factors, including: previous fracture. Discussion: BONE DENSITY IS LOW AT ONE OR MORE SKELETAL SITES. THE PATIENT'S BMD AND CLINICAL RISK FACTORS CONTRIBUTE TO THIS PATIENT'S INCREASED RISK OF FRACTURE. This patient's lowest T-score is low at one or more skeletal sites. It meets the World Health Organization's (WHO) criteria for ?low bone mass? (T-score between -1.0 and -2.5). The patient's 10-year risk of hip fracture as calculated by FRAX exceeds the threshold where pharmacological therapy is recommended by the National Osteoporosis Foundation (NOF). However, all treatment decisions require clinical judgment and consideration of individual patient factors, including patient preferences, comorbidities, previous drug use, risk factors not captured in the FRAX model (e.g., frailty, falls, vitamin D deficiency, increased bone turnover, interval significant decline in bone density) and possible under or overestimation of fracture risk by FRAX. The patient should follow a healthful lifestyle (good nutrition with adequate calcium and vitamin D, and appropriate weight-bearing exercise). Follow-Up: Consider a repeat BMD and Vertebral Fracture Assessment (VFA) exam in 2 years or sooner if medically necessary, to reassess this patient's status. Reported by: PARI on 01/31/2025 3:27:00 PM. Reviewed, dictated and finalized at location A.
== END 2025-01-31 14:56 | disposition home or self-care (01) ==
LOC: MICIMG 14:57
PROVIDERS: PCP Internal Medicine; Visit Provider Internal Medicine
DX: M85.89 Other specified disorders of bone density and structure, multiple sites (principal); Z78.0 Asymptomatic menopausal state
CPT/HCPCS: 77080